=== PATIENT | female | born 1965 | race Asian ===

== ENCOUNTER 2017-08-26 08:31 | Outpatient (CLI) | payer BC ==
--- NOTE | 2017-08-26 11:26 | Mammography Report ---
BILATERAL DIGITAL DIAGNOSTIC MAMMOGRAM with CAD and LEFT BREAST ULTRASOUND: 08/26/17 CLINICAL: Left breast pain and lump. She has felt a lump for approximately 6 weeks. COMPARISON:08/04/14 FINDINGS: The breasts are heterogeneously dense, which may obscure small masses.An irregular asymmetry at 12 o'clock correlates with the palpable lump. There is suggestion of a mass with associated architectural distortion on the lateral view. No suspicious calcifications. The right breast is negative. Ultrasound of the left breast (including all four quadrants and the retroareolar area) was performed and demonstrated an irregular solid heterogeneous hypoechoic mass at 12 o'clock approximately 4 cm from the nipple. It measures 2.6 x 1.9 x 1.6 cm and correlates with the mammographic abnormality. No other mass of the breast. Ultrasound of the left axilla demonstrated a 1.9 x 0.7 cm lymph node with 4 mm thick cortex. Several smaller lymph nodes with no cortical thickening. IMPRESSION: A suspicious 2.6 cm left breast mass at 12 o'clock and one suspicious left axillary lymph node. BI-RADS CATEGORY: 4 -- Suspicious RECOMMENDATION: Ultrasound guided needle core biopsy of the left breast mass and ultrasound guided needle core biopsy of the suspicious left axillary lymph node. I discussed the findings and the recommendation for needle core biopsies of the left breast and left axillary lymph node with the patient at the time of the examination. ACR BI-RADS MAMMOGRAPHIC CODES: 0 = Needs additional imaging evaluation; 1 = Negative; 2 = Benign; 3 = Probably benign; 4 = Suspicious; 5 = Malignant; 6 = Known biopsy-proven malignancy COMMENT: 1. Dense breast tissue, i.e., adenosis, fibrocystic changes, etc., may obscure an underlying neoplasm. 2. Approximately 10% of cancers are not detected with mammography. 3. A negative mammography report should not delay biopsy if a clinically suspicious mass is present. COMMENT: Patient follow-up letters are generated by our [employer] application.
== END 2017-08-26 08:32 | disposition home or self-care (01) ==
LOC: MAMMO 08:31 → SPVWC 08:31
PROVIDERS: ATTEND Obstetrics & Gynecology
DX: N63.20 Unspecified lump in the left breast, unspecified quadrant (principal); N64.4 Mastodynia
CPT/HCPCS: 76641; G0204; 77066; 77067; G0202

== ENCOUNTER 2017-09-09 12:32 | Outpatient (CLI) | payer BC ==
--- NOTE | 2017-09-09 14:40 | Mammography Report ---
LEFT DIGITAL DIAGNOSTIC MAMMOGRAM: 09/09/17 12:32:00 CLINICAL: For clip placement immediately status post ultrasound biopsy. COMPARISON:08/26/17 FINDINGS: Biopsy clips are now identified within the mass at 12 o'clock and within an axillary lymph node. IMPRESSION: Concordant clip placement status post ultrasound guided biopsy of a breast mass and an axillary lymph node. BI-RADS CATEGORY: 4--Suspicious Pathology pending.
--- NOTE | 2017-09-09 15:21 | Ultrasound Report ---
ULTRASOUND GUIDED NEEDLE CORE BIOPSY WITH CLIP PLACEMENT LEFT BREAST AND ULTRASOUND GUIDED NEEDLE CORE BIOPSY OF A LEFT AXILLARY LYMPH NODE : 09/09/17 CLINICAL: Left breast mass and suspicious left axillary lymph node. COMPARISON :08/26/17 FINDINGS: The procedure was explained to the patient and informed consent was obtained. Ultrasound demonstrated the previously described suspicious mass at 12 o'clock approximately 4 cm from the nipple and the suspicious left axillary lymph node. The breast was marked with a felt tip marker in a timeout was called. The skin was prepped with Betadine and anesthetized with 1% lidocaine. Ultrasound guided needle core biopsy was performed through a small dermatotomy using ultrasound guidance, 2% lidocaine with epinephrine for deep anesthesia and a 14 gauge Achieve biopsy device. Imaging demonstrated satisfactory sampling. Multiple cores were obtained and placed in formalin. A localizer clip was deployed within the mass. The skin in the axilla was prepped with Betadine and anesthetized with 1% lidocaine. Ultrasound guided needle core biopsy of a lymph node with suspicious cortical thickening was performed through a small dermatotomy using 2% lidocaine with epinephrine for deep anesthesia and an 18-gauge Achieve biopsy device. Three samples were obtained and placed in formalin. A localizer clip was deployed within the lymph node. Hemostasis was obtained at both sites with minimal pressure and sterile dressings were applied. The patient tolerated the procedure well and there were no apparent complications. She left the department in good condition with instructions for wound care and followup. IMPRESSION: Uncomplicated ultrasound-guided needle core biopsy of a left breast mass and uncomplicated needle core biopsy of a left axillary lymph node.
== END 2017-09-09 12:33 | disposition home or self-care (01) ==
LOC: SPVWC 12:32
PROVIDERS: ATTEND Obstetrics & Gynecology
DX: C50.912 Malignant neoplasm of unspecified site of left female breast (principal)
CPT/HCPCS: 19083; 38505; 88305; G0206; 88342; 88361